=== PATIENT | female | born 1950 | race Caucasian/White ===

== ENCOUNTER 2016-09-21 05:19 | Observation (INO) | payer MEDICARE, BC ==
[~2016-09-21] VITALS: Ht 170.2 cm; Wt 62.2 kg
[~2016-09-21 05:19] MED LIST: CALCIUM WITH VI1 TAB PO; PRILOSEC 20MG20 MG PO; [UNRECOGNIZED DRUG - OTHER]; [UNRECOGNIZED DRUG - OTHER] PO
[2016-09-21] MEDS ORDERED: PROTONIX 40MG T40 MG PO (05:41)
[2016-09-21] MEDS ORDERED: CALCIUM 600MG+D1 TAB PO (05:41)
[2016-09-21 05:53] LABS: BASO % 0.2 % (0.0-2.0); EOS % 0.9 % (0-4.0); GRAN # 2.7 (1.4-6.5); GRAN % 62.6 % (42.2-75.2); HEMATOCRIT 40.2 % (37.0-47.0); HEMOGLOBIN 13.1 g/dl (12.5-16.0); LYMPH # 1.1 (1.2-3.4); LYMPH % 25.3 % (20.0-51.0); MEAN CELL VOLUME 82 fl (80.0-100.0); MEAN CORPUSCULAR HEMOGLOBIN 27 pg (27.0-31.0); MEAN CORPUSCULAR HGB CONC 33 g/dl (33.0-37.0); MEAN PLATELET VOLUME 10.4 fl (7.4-10.4); MONO # 0.5 (0.1-0.6); MONO % 10.8 % (1.7-9.3); PLATELET COUNT 165 K/mm3 (130-400); RED BLOOD COUNT 4.93 M/mm3 (4.10-5.30); REDCELL DISTRIBUTION WIDTH-CV 15.9 % (11.5-14.5); WHITE BLOOD COUNT 4.4 K/mm3 (4.8-10.8)
[2016-09-21 06:07] LABS: ALANINE AMINOTRANSFERASE 24 U/L (9-52); ALBUMIN 4.2 gm/dL (3.5-5.0); ALKALINE PHOSPHATASE 77 U/L (50-136); ANION GAP 11 mmol/L (7-16); BILIRUBIN,TOTAL 0.4 mg/dL (0.0-1.0); BLOOD UREA NITROGEN 15 mg/dL (7-17); CALCIUM 9.2 mg/dL (8.4-10.2); CARBON DIOXIDE 29 mmol/L (22-30); CHLORIDE 102 mmol/L (98-107); CREATININE, serum 0.69 mg/dL (0.52-1.25); GLUCOSE 102 mg/dL (74-106); LIPASE 90 U/L (23-300); POTASSIUM 3.5 mmol/L (3.4-5.0); SODIUM 142 mmol/L (137-145); TOTAL PROTEIN 6.9 gm/dL (6.4-8.2)
[2016-09-21 06:19] LABS: TROPONIN-I < 0.012 ng/mL (0.000-0.034)
[2016-09-21 08:25] VITALS: BP 145/77; PULSE 72; TEMP 98
[2016-09-21] MEDS ORDERED: PROBIOTIC-MAJOR PO (08:39)
[2016-09-21] MEDS ORDERED: IRON325 MG PO (08:39)
[2016-09-21] MEDS ORDERED: B-121000 MCG PO (08:40)
[2016-09-21] MEDS ORDERED: MELATONIN1 MG PO (08:41)
[2016-09-21] MEDS ORDERED: BENADRYL25 M2 PO (08:43)
[2016-09-21] MEDS ORDERED: ALMACONE 360 M360 ML PO (08:44)
[2016-09-21 12:01] VITALS: BP 144/63; PULSE 72; TEMP 97.7
[2016-09-21 15:33] VITALS: BP 159/70; PULSE 77; TEMP 97.8
== END 2016-09-21 16:46 | disposition home or self-care (01) ==
LOC: COL.ER 05:19 → MEDICAL 06:49
PROVIDERS: Emergency Medicine
DX: R07.9 Chest pain, unspecified (principal); I34.0 Nonrheumatic mitral (valve) insufficiency; K21.9 Gastro-esophageal reflux disease without esophagitis; Z90.49 Acquired absence of other specified parts of digestive tract; Z96.642 Presence of left artificial hip joint; Z87.891 Personal history of nicotine dependence; Z82.49 Family history of ischemic heart disease and other diseases of the circulatory system
CPT/HCPCS: C9113; G0378; J7030

== ENCOUNTER → 2017-01-16 | Outpatient (CLI) | payer MEDICARE, BC ==
[~2017-01-16] MED LIST changes: +ALMACONE 360 M360 ML PO; +B-121000 MCG PO; +BENADRYL25 M2 PO; +CALCIUM 600MG+D1 TAB PO; +IRON325 MG PO; +MELATONIN1 MG PO; +PROBIOTIC-MAJOR PO; +PROTONIX 40MG T40 MG PO
== END ==
LOC: MC.RAD 09:00
DX: Z12.31 Encounter for screening mammogram for malignant neoplasm of breast (principal)

== ENCOUNTER → 2018-01-21 | Outpatient (CLI) | payer MEDICARE, BC | LOC: MC.RAD 06:49 | DX: Z12.31 Encounter for screening mammogram for malignant neoplasm of breast (principal) ==

== ENCOUNTER → 2019-01-28 | Outpatient (CLI) | payer MEDICARE, BC | LOC: MC.RAD 12:30 | DX: Z12.31 Encounter for screening mammogram for malignant neoplasm of breast (principal) ==

== ENCOUNTER → 2020-02-04 | Outpatient (CLI) | payer MEDICARE, BC | LOC: MC.RAD 11:23 | DX: Z12.31 Encounter for screening mammogram for malignant neoplasm of breast (principal) ==

== ENCOUNTER → 2021-02-22 | Outpatient (CLI) | payer MEDICARE, BC | LOC: MC.RAD 08:38 | DX: Z12.31 Encounter for screening mammogram for malignant neoplasm of breast (principal) ==